=== PATIENT | female | born 1995 | race Caucasian/White ===

== ENCOUNTER 2017-02-27 06:29 | Emergency (ER) | payer BC ==
--- NOTE | 2017-02-27 06:54 | ERNOTE ---
Chest Pain/Cardiac HPI Date of Service: 02/27/17 Chief Complaint: Chest Pain Time Seen by Provider: 02/27/17 06:42 Source: patient Immunizations: IMMUNIZATION HX Immunizations Up to Date Yes History of Influenza Vaccine Yes Hx Pneumococcal Vaccination No Allergies/Adverse Reactions: Allergies No Known Allergies Allergy (Verified 02/27/17 06:40) Home Medications: HOME MEDICATIONS NK [No Home Medication] 02/27/17 [Last Taken Unknown] Narrative: This is a 21-year-old female who comes to the emergency department with chest pain which has been going on since 9:30 or 10:00 last night. The patient says she was lying down in bed trying to go to sleep when she noticed some sharp pain in her chest. She says it felt like somebody was "sitting on my chest". She said she had mild shortness of breath. She denies diaphoresis or radiation. Nothing made the pain any better or worse. He remained all night. She got up to go to work this morning she says that getting up made her even more so she decided to come to the hospital. She has never had any heart problems. She does not have high blood pressure she does not have diabetes she is a smoker and does not use any illegal drugs. No family history of early cardiac disease. She does have a history of anxiety. No other somatic complaints. No coughing or fever. Review of Systems - Review of Systems Constitutional: Present: no symptoms reported EYE: Present: no symptoms reported ENT: Present: no symptoms reported Respiratory: Present: no symptoms reported Cardiology: Present: chest pain Gastrointestinal/Abdominal: Present: no symptoms reported Genitourinary: Present: no symptoms reported Musculoskeletal: Present: no symptoms reported Skin: Present: no symptoms reported Neurological: Present: no symptoms reported Endocrine: Present: no symptoms reported Hematologic/Lymphatic: Present: no symptoms reported Psych: Present: no symptoms reported All Other Systems: All systems neg except as marked - Patient's Past Medical History Patient History - Medical: Anxiety, Depression Patient History - Cardiac/Respiratory: No pertinent hx Patient History - Cancer: No Hx of Cancer Patient History - Surgical Procedures: Appendectomy Patient History - Other: None LMP (females 10-50): now - Social History Living Situations: home Abuse History: No History of abuse Psych History: Hx of Anxiety, Hx of Depression Smoking Status: Current some day smoker Have you smoked in the past 12 months: Yes Do you dip or chew tobacco: No Alcohol Use: none Drug Use: none - Immunizations Immunizations Up to Date: Yes Hx Pneumococcal Vaccination: No History of Influenza Vaccine: Yes Physical Exam - Physical Exam General Appearance: Present: wd/wn, alert, no apparent distress Head Exam: Present: normal inspection, no evidence of injury Eye Exam: Normal inspection: bilateral, PERRL: bilateral, EOMI: bilateral Ears, Nose, Throat: Present: normal ENT inspection, normal pharynx Neck: Present: normal inspection, nontender Respiratory: Present: no respiratory distress, no accessory muscle use, chest nontender, lungs clear Cardiovascular/Chest: Present: regular rate, rhythm, no murmur, normal peripheral pulses Gastrointestinal/Abdominal: Present: normal bowel sounds, nontender, nondistended, soft, no organomegaly Back Exam: Present: normal inspection, normal range of motion, no CVA tenderness , no vertebral tenderness Extremity Exam: Present: normal inspection, non-tender, normal range of motion, no edema Neurological Exam: Present: alert, oriented, normal mood/affect Skin Exam: Present: normal color, warm/dry Lymphatic Exam: Present: no adenopathy ED Progress - Results and Orders Patient's Lab Results:: I have reviewed the patient's lab results. - Vital Signs Patient's Vital Signs:: I have reviewed the patient's vital signs. Vital Signs: Vital Signs 02/27/17 02/27/17 02/27/17 06:31 06:37 06:40 Temperature 36.9 C Pulse Rate 83 82 76 Respiratory 18 17 Rate Blood Pressure 135/90 135/90 O2 Sat by Pulse 99 99 Oximetry - EKG EKG: NSR EKG read: Interp. by me EKG Comments: Normal sinus rhythm, normal axis, normal intervals, T-wave inversion in lead 3 which is a normal variant no acute ischemic changes - Progress/Reassessment Chief Complaint: Chest Pain Progress:: Unchanged Departure - Departure Clinical Impression: Chest pain Disposition: Home self-care Condition: Stable Additional Instructions: As we discussed, urine tests and studies here do not show anything significantly abnormal. This does not imply that you are having pain only that I have not been able to identify an emergency cause for the pain here in the emergency department. I want you call your family doctor to set up a follow-up appointment. Certainly if you develop new worrisome symptoms he should return to the ER. Referrals: Mindy Ramirez MD [Primary Care Provider] -
[2017-02-27 06:58] VITALS: BP 114/73
[2017-02-27 07:02] LABS: Hematocrit 36.9 % (37.0-47.0); Hemoglobin 12.5 gm/dL (12.5-16.0); Mean Cell Volume 90.2 fl (78-100); Mean Corpuscular Hemoglobin 30.6 pg (27-31); Mean Corpuscular Hgb Conc 33.9 g/dl (32-36); Mean Platelet Volume 10.2 fl (6.0-9.5); Neutrophil % 52.4 % (42-75.0); Platelet Count 269 K/mm3 (150-450); Red Blood Count 4.09 M/mm3 (4.2-5.4); Red Cell Distribution Width 11.7 % (11.5-14.0); White Blood Count 5.7 K/mm3 (4.0-10.5)
[2017-02-27 07:19] LABS: ALT 21 U/L (19-67); AST 14 U/L (0-48); Albumin * 3.8 gm/dl (3.4-5.0); Alkaline Phosphatase * 56 U/L (50-170); Anion Gap 14.8 mmol/L (6.8-13.8); BUN/Creatinine Ratio 9.9 (9.0-21.6); Bilirubin, Total 0.4 mg/dL (0.0-1.1); Blood Urea Nitrogen 7 mg/dL (3-23); Ca. Corrected For Albumin 8.7 mg/dL (8.4-10.2); Calcium * 8.9 mg/dL (7.9-10.9); Carbon Dioxide 24.4 mmol/L (24-32.6); Chloride 104 mmol/L (97-106); Glucose * 100 mg/dL (70-110); Potassium 4.2 mmol/L (3.4-4.6); Sodium 139 mmol/L (132-142); Total Protein 7.4 gm/dL (6.2-8.2); Troponin I Less than 0.017 ng/ml (0.00-0.10)
[2017-02-27] MEDS ORDERED: BELLADONNA ALKALOIDS/PHENOBARB 60 ML BTL PO ONE (07:46)
[2017-02-27] MEDS ORDERED: MAG HYDROX/ALUMINUM HYD/SIMETH 30 ML UDC PO ONE (07:46)
[2017-02-27] MEDS ORDERED: LIDOCAINE HCL 20 ML UDC PO ONE (07:46)
== END 2017-02-27 08:00 | disposition home or self-care (01) ==
LOC: ER 06:29
DX: R07.9 Chest pain, unspecified (principal); F17.200 Nicotine dependence, unspecified, uncomplicated

== ENCOUNTER 2017-05-06 16:43 | Emergency (ER) | payer BC, OTHER ==
[2017-05-06 18:20] VITALS: BP 134/72
--- NOTE | 2017-05-06 18:36 | ERNOTE ---
Medical Problem HPI - Narrative Date of Service: 05/06/17 - General Chief Complaint: General Assessment Time Seen by Provider: 05/06/17 17:28 Source: patient Exam Limitations: no limitations - Immun/Allergies/Home Medications Immunizations: IMMUNIZATION HX Immunizations Up to Date Yes History of Influenza Vaccine Yes Hx Pneumococcal Vaccination No Allergies/Adverse Reactions: Allergies No Known Allergies Allergy (Verified 05/06/17 17:25) Home Medications: HOME MEDICATIONS NK [No Home Medication] 02/27/17 [Last Taken Unknown] - History of Present History Narrative: Patient presents after a lancet stick. She had checked a blood glucose on a patient and stuck herself in the left 2nd digit with the lancet. Gloved hand. No other Sx with this. She did not bleed. Patient by report is low risk. No N /T/W. No other complaints. Timing: gone now Severity: mild Modifying Factors - (Improves): Present: other - nothing Modifying Factors - (Worsens): Present: other - nothing Review of Systems - Review of Systems Constitutional: Absent: fever - Patient's Past Medical History Patient History - Medical: Anxiety, Depression Patient History - Cardiac/Respiratory: No pertinent hx Patient History - Cancer: No Hx of Cancer Patient History - Surgical Procedures: Appendectomy Patient History - Other: None LMP (females 10-50): 1 month - Social History Abuse History: No History of abuse Psych History: Hx of Anxiety, Hx of Depression Smoking Status: Never smoker - Immunizations Immunizations Up to Date: Yes Hx Pneumococcal Vaccination: No History of Influenza Vaccine: Yes Physical Exam - Physical Exam General Appearance: Present: alert, no apparent distress Head Exam: Present: normal inspection Eye Exam: Normal inspection: bilateral Neck: Present: normal inspection Respiratory: Present: no respiratory distress Cardiovascular/Chest: Present: regular rate, rhythm Back Exam: Present: normal range of motion Extremity Exam: Present: normal inspection, other - No bleeding or infection left second finger. no clear puncture site. No other abnormalities by iunspection or palpation. Neurological Exam: Present: alert, normal mood/affect, no motor/sensory deficits Skin Exam: Present: normal color, warm/dry ED Progress - Vital Signs Patient's Vital Signs:: I have reviewed the patient's vital signs. Vital Signs: Vital Signs 05/06/17 05/06/17 05/06/17 17:16 17:52 18:19 Temperature 37.2 C 37 C Pulse Rate 81 78 82 Respiratory 16 14 Rate Blood Pressure 125/76 127/69 134/72 O2 Sat by Pulse 100 100 Oximetry - Progress/Reassessment Chief Complaint: General Assessment Progress Note-Subjective: 05/06/17 18:39 Labs ordered by protocol. Patient low risk. I discussed HIV prophylaxis with her, risk stratification. She understands risks and benefits but decliens HIV prophylaxis. I discussed warning signs and reasons to return as well as the need for close f/u. Departure Clinical Impression: Needle stick injury of finger - Departure Disposition: Home self-care Condition: Stable Additional Instructions: Close observation of the site. Return if you change your mind about HIV prophylaxis medications, develop signs of infection or if your condition worsens or changes in any way. Follow-up with Occupational Health tomorrow. Referrals: Mindy Ramirez MD [Primary Care Provider] -
[2017-05-06] MEDS ORDERED: DIPHTH,PERTUSS(ACELL),TET VAC 0.5 ML VIAL IM ONE (18:37)
== END 2017-05-06 18:51 | disposition home or self-care (01) ==
LOC: ER 16:43
DX: S61.231A Puncture wound without foreign body of left index finger without damage to nail, initial encounter (principal); X58.XXXA Exposure to other specified factors, initial encounter; Y93.F9 Activity, other caregiving; Y92.538 Other ambulatory health services establishments as the place of occurrence of the external cause; Y99.0 Civilian activity done for income or pay; Z77.21 Contact with and (suspected) exposure to potentially hazardous body fluids; Z23 Encounter for immunization

== ENCOUNTER 2020-07-11 10:56 | Inpatient (IN) ==
[2020-07-11] MEDS ORDERED: RINGER'S SOLUTION,LACTATED 1,000 ML IV ONE (11:45)
[2020-07-11] MEDS ORDERED: ONDANSETRON 4 MG TAB.RAPDIS PO PRN (11:45)
[2020-07-11] MEDS ORDERED: DEXTROSE 5%-LACTATED RINGERS 1,000 ML IV PRN (11:45)
[2020-07-11] MEDS ORDERED: OXYTOCIN/0.9 % SODIUM CHLORIDE 30 UNITS/500 ML BAG IV ONE (11:45)
[2020-07-11 12:08] LABS: Hematocrit 35.5 % (37.0-47.0); Hemoglobin 11.8 gm/dL (12.5-16.0); Mean Corpuscular Hemoglobin 28.9 pg (27-31); Mean Corpuscular Hgb Conc 33.2 g/dl (32-36); Mean Platelet Volume 10.4 fl (8-12.5); Neutrophil # 5.8 K/mm3 (1.3-6.0); Neutrophil % 68.5 % (42-75.0); Platelet Count 231 K/mm3 (150-450); Red Blood Count 4.08 M/mm3 (4.2-5.4); Red Cell Distribution Width 13.2 % (11.5-14.0); White Blood Count 8.4 K/mm3 (4.0-10.5)
[2020-07-11 12:13] LABS: Albumin * 2.6 gm/dl (3.4-5.0); Anion Gap 15.9 mmol/L (6.8-13.8); BUN/Creatinine Ratio 13.7 (9.0-21.6); Bilirubin, Total 0.3 mg/dL (0.0-1.1); Ca. Corrected For Albumin 9.6 mg/dL (8.4-10.2); Calcium * 8.8 mg/dL (7.9-10.9); Carbon Dioxide 20.7 mmol/L (24-32.6); Potassium 3.6 mmol/L (3.4-4.6); Total Protein 6.7 gm/dL (6.2-8.2)
[2020-07-11 12:19] LABS: Random Urine Total Protein 16.2 mg/dL (0-12)
--- NOTE | 2020-07-11 12:41 | HP ---
Chief Complaint - Chief Complaint Date of Service: 07/11/20 Time of Service: 12:31 Chief Complaint: Induction of labor for GHTN History of Present Illness: 25 yo at 38w5d presents to L&D for induction of labor due to GHTN. Patient denies TAY, visual changes, epigastric pain, and COVID s/s. This complicated by anemia, anxiety, HSV carrier (no lesions, on prophylaxis), h/o GHTN in prior , and now GHTN with this . Rh positive Rubella immune GBS negative Medical History (Last Reviewed 07/11/20 @ 12:34 by Alfonzo Driver DO) Anemia (Chronic) Onset Date: 11/09/17 with pregnancies, 2019 Anxiety (Chronic) HSV antigen DIF positive (Chronic) History of gestational hypertension (Chronic) Bronchospasm Onset Date: Unknown Chlamydia Onset Date: Unknown treated Dysuria Onset Date: 08/31/14 Gestational hypertension Onset Date: ~01/2018 Gestational hypertension Onset Date: ~07/11/20 Hypovitaminosis D Onset Date: 10/02/15 Otitis media Onset Date: Unknown Ovarian cyst Onset Date: Unknown Pharyngitis due to erniqueta influenza virus Onset Date: 06/13/14 Pharyngitis, acute Onset Date: Unknown Pneumonia Onset Date: Unknown Scabies Onset Date: 02/17/13 Anxiety Onset Date: Unknown stopped taking vistaril after + UPT Herpes genitalis Onset Date: Unknown last outbreak 2017 Surgical History: Surgical History (Last Reviewed 07/11/20 @ 12:34 by Alfonzo Driver DO) Hx of appendectomy Onset Date: 05/12/16 Family History: Family History (Last Reviewed 07/11/20 @ 12:34 by Alfonzo Driver DO) Mother Alive and well Father Alive and well Social History: (Last Reviewed 07/11/20 @ 12:34 by Alfonzo Driver DO) Social History: Marital status: Single household members: children current occupational status: unemployed current occupational exposures/hazards: No Highest level of school completed/degree received: high school graduate Service: No Tobacco: Smoking Status: Former smoker Alcohol: alcohol intake: current alcohol intake frequency: a few times a week details: none since + UPT Substance Use: substance use type: does not use Dietary Habits: caffeine: Yes caffeine comment: 4-5 weekly Exercise: Physical activity type: none Review Of Systems (GEN) - Review of Systems Generalized/Overall Review: Present: No Symptoms Reported EENTM: Present: No Symptoms Reported Respiratory: Present: No Symptoms Reported Cardiac: Present: No Symptoms Reported Abdominal: Present: Abdominal Pain - mild contractions Genitourinary: Present: No Symptoms Reported Musculoskeletal: Present: No Symptoms Reported Neurological: Present: No Symptoms Reported Skin: Present: No Symptoms Reported Endocrine: Present: No Symptoms Reported Immunizations: IMMUNIZATION HX Immunizations Up to Date Yes History of Influenza Vaccine Yes Hx Pneumococcal Vaccination No Allergies/Adverse Reactions: Allergies Allergy/AdvReac Type Severity Reaction Status Date / Time No Known Allergies Allergy Verified 07/11/20 10:44 Home Medications: HOME MEDICATIONS magnesium oxide 400 mg PO DAILY 04/10/20 [Last Taken Unknown] ferrous sulfate 325 mg (65 mg iron) tablet,delayed release 325 mg PO DAILY #30 tab 05/03/20 [Last Taken Unknown] acetaminophen 325 mg capsule 325 mg PO Q6H PRN 06/12/20 [Last Taken Unknown] valacyclovir 500 mg tablet 500 mg PO BID 30 Days #60 tab 06/12/20 [Last Taken Unknown] hydroxyzine HCl 25 mg tablet 25 mg PO HS #30 tab 06/14/20 [Last Taken Unknown] Vits96/Iron Fum/Folic [ S] 1 tab PO DAILY 07/11/20 [Last Taken Unknown] Exam - Exam Vital Signs: Vital Signs - Last Taken Temp 37 C 07/11/20 11:19 Pulse 114 H 07/11/20 11:19 Resp 18 07/11/20 11:19 BP 128/78 07/11/20 11:19 Pulse Ox 99 07/11/20 11:19 BP 135/93 in office. Constitutional: Present: Alert, Oriented x3, Cooperative ENT Exam: Present: hearing grossly normal Neck: Present: non-tender, trachea midline. Absent: thyromegaly Breasts: Present: Exam deferred Respiratory: Present: lungs clear, no respiratory distress Cardiovascular/Chest: Present: normal peripheral pulses, no edema, tachycardia Abdomen: Present: soft, nontender, no rebound tenderness, other - gravid. Absent: guarding /Rectal: Present: Other - cervix 2/60/-2 Extremity: Present: no pedal edema, no calf tenderness Skin Exam: Present: normal color, warm/dry, no cyanosis Lymphatic: Present: no adenopathy Neurologic: Present: alert, normal mood/affect - mildly anxious, oriented x 3 Appearance: Present: appropriate appearance, appropriate insight Eye contact: Present: cooperative, good eye contact Thoughts: Present: normal thought pattern Diagnostic Studies: Abnormal Lab Results 07/11/20 07/11/20 07/11/20 Range/Units 11:30 11:55 11:55 RBC 4.08 L (4.2-5.4) M/mm3 Hgb 11.8 L (12.5-16.0) gm/dL Hct 35.5 L (37.0-47.0) % Immature Gran % (Auto) 0.70 H (0.001-0.429) % Immature Gran # (Auto) 0.06 H (0.000-0.0310) K/mm3 Carbon Dioxide 20.7 L (24-32.6) mmol/L Anion Gap 15.9 H (6.8-13.8) mmol/L Est GFR (Non-Af Amer) 159 H (60-130) mL/min ALT 14 L (19-67) U/L Albumin 2.6 L (3.4-5.0) gm/dl U Random Total Protein 16.2 H (0-12) mg/dL Laboratory Results WBC 8.4 K/mm3 (4.0-10.5) 07/11/20 11:55 RBC 4.08 M/mm3 (4.2-5.4) L 07/11/20 11:55 Hgb 11.8 gm/dL (12.5-16.0) L 07/11/20 11:55 Hct 35.5 % (37.0-47.0) L 07/11/20 11:55 MCV 87.0 fl (78-100) 07/11/20 11:55 MCH 28.9 pg (27-31) 07/11/20 11:55 MCHC 33.2 g/dl (32-36) 07/11/20 11:55 RDW 13.2 % (11.5-14.0) 07/11/20 11:55 Plt Count 231 K/mm3 (150-450) 07/11/20 11:55 MPV 10.4 fl (8-12.5) 07/11/20 11:55 Immature Gran % (Auto) 0.70 % (0.001-0.429) H 07/11/20 11:55 Immature Gran # (Auto) 0.06 K/mm3 (0.000-0.0310) H 07/11/20 11:55 Neutrophils % 68.5 % (42-75.0) 07/11/20 11:55 Lymphocytes % 20.8 % (20-51) 07/11/20 11:55 Monocytes % 8.9 % (0.0-9) 07/11/20 11:55 Eosinophils % 0.7 % (0.0-3.0) 07/11/20 11:55 Basophils % 0.4 % (0.0-1.0) 07/11/20 11:55 Nucleated RBC % 0.0 k/mm3 (0-1) 07/11/20 11:55 Neutrophils # 5.8 K/mm3 (1.3-6.0) 07/11/20 11:55 Lymphocytes # 1.75 k/mm3 (1.5-3.5) 07/11/20 11:55 Monocytes # 0.8 k/mm3 (0.0-1.0) 07/11/20 11:55 Eosinophils # 0.1 k/mm3 (0.0-0.7) 07/11/20 11:55 Absolute Basophils 0.0 k/mm3 (0.0-0.1) 07/11/20 11:55 Sodium 138 mmol/L (132-142) 07/11/20 11:55 Plasma Sodium 138 mmol/L (130-142) 07/11/20 11:55 Potassium 3.6 mmol/L (3.4-4.6) 07/11/20 11:55 Chloride 105 mmol/L (97-106) 07/11/20 11:55 Carbon Dioxide 20.7 mmol/L (24-32.6) L 07/11/20 11:55 Anion Gap 15.9 mmol/L (6.8-13.8) H 07/11/20 11:55 BUN 7 mg/dL (3-23) 07/11/20 11:55 Creatinine 0.51 mg/dL (0.4-1.4) 07/11/20 11:55 Est GFR (Non-Af Amer) 159 mL/min (60-130) H 07/11/20 11:55 BUN/Creatinine Ratio 13.7 (9.0-21.6) 07/11/20 11:55 Random Glucose 109 mg/dL (70-110) 07/11/20 11:55 Calcium 8.8 mg/dL (7.9-10.9) 07/11/20 11:55 Calcium Adj for Albumin 9.6 mg/dL (8.4-10.2) 07/11/20 11:55 Total Bilirubin 0.3 mg/dL (0.0-1.1) 07/11/20 11:55 AST 13 U/L (0-48) 07/11/20 11:55 ALT 14 U/L (19-67) L 07/11/20 11:55 Alkaline Phosphatase 135 U/L (50-170) 07/11/20 11:55 Total Protein 6.7 gm/dL (6.2-8.2) 07/11/20 11:55 Albumin 2.6 gm/dl (3.4-5.0) L 07/11/20 11:55 Ur Random Creatinine 102.2 mg/dL (60-200) 07/11/20 11:30 U Random Total Protein 16.2 mg/dL (0-12) H 07/11/20 11:30 U [place] Prot/Creat Ratio 159 mg/gm (0-199) 07/11/20 11:30 Assessment/Plan - Assessment/Plan (1) Gestational hyperglycemia Assessment: Admit for pitocin induction of labor. Epidural PRN. Check preeclamptic labs. Monitor closely for severe features. Problem: Acute (2) Anxiety Problem: Chronic (3) HSV antigen DIF positive Problem: Chronic (4) Anemia Problem: Chronic Qualifiers: Anemia type: iron deficiency Iron deficiency anemia type: inadequate dietary iron intake Qualified Code(s): D50.8 - Other iron deficiency anemias
[2020-07-11] MEDS ORDERED: NALOXONE HCL 1 MG/1 ML SYRG IV PRN (15:44)
[2020-07-11] MEDS ORDERED: ONDANSETRON HCL/PF 2 MG/ML VIAL IV PRN (15:44)
[2020-07-11] MEDS ORDERED: BUPIVACAINE HCL/0.9 % NACL/PF 250 ML EP PRN (15:44)
[2020-07-11] MEDS ORDERED: fentaNYL CITRATE/PF 50 MCG/ML AMPUL IT SCH (15:45)
--- NOTE | 2020-07-11 16:35 | ANES ---
Anesthesia Pre Procedure Eval Vitals/Labs: Last Vital Signs Temp 37 C 07/11/20 11:19 Pulse 114 H 07/11/20 11:19 Resp 18 07/11/20 11:19 BP 128/78 07/11/20 11:19 Pulse Ox 99 07/11/20 11:19 HOME MEDICATIONS magnesium oxide 400 mg PO DAILY 04/10/20 [Last Taken Unknown] ferrous sulfate 325 mg (65 mg iron) tablet,delayed release 325 mg PO DAILY #30 tab 05/03/20 [Last Taken Unknown] acetaminophen 325 mg capsule 325 mg PO Q6H PRN 06/12/20 [Last Taken Unknown] valacyclovir 500 mg tablet 500 mg PO BID 30 Days #60 tab 06/12/20 [Last Taken Unknown] hydroxyzine HCl 25 mg tablet 25 mg PO HS #30 tab 06/14/20 [Last Taken Unknown] Vits96/Iron Fum/Folic [ S] 1 tab PO DAILY 07/11/20 [Last Taken Unknown] Allergies/Adverse Reactions: Allergies Allergy/AdvReac Type Severity Reaction Status Date / Time No Known Allergies Allergy Verified 07/11/20 10:44 - Planned Procedure Planned Procedure: induction gestational htn Medication List Reviewed:: Yes Allergies Verified: Yes Medical History (Last Reviewed 07/11/20 @ 16:33 by Sukhdeep Najera CRNA) Anemia (Chronic) Onset Date: 11/09/17 with pregnancies, 2019 Anxiety (Chronic) HSV antigen DIF positive (Chronic) History of gestational hypertension (Chronic) Bronchospasm Onset Date: Unknown Chlamydia Onset Date: Unknown treated Dysuria Onset Date: 08/31/14 Gestational hypertension Onset Date: ~01/2018 Gestational hypertension Onset Date: ~07/11/20 Hypovitaminosis D Onset Date: 10/02/15 Otitis media Onset Date: Unknown Ovarian cyst Onset Date: Unknown Pharyngitis due to enriqueta influenza virus Onset Date: 06/13/14 Pharyngitis, acute Onset Date: Unknown Pneumonia Onset Date: Unknown Scabies Onset Date: 02/17/13 Anxiety Onset Date: Unknown stopped taking vistaril after + UPT Herpes genitalis Onset Date: Unknown last outbreak 2018 Surgical History (Last Reviewed 07/11/20 @ 16:33 by Sukhdeep Najera CRNA) Hx of appendectomy Onset Date: 05/12/16 Family History (Last Reviewed 07/11/20 @ 16:33 by Sukhdeep Najera CRNA) Mother Alive and well Father Alive and well - Family Anesthesia History Family History:: no untoward family reactions to anesthesia, no familial bleeding tendencies, no family history of clotting disorders, no family history of premature - Airway/Neck/Teeth Within Normal Limits:: Yes Teeth Condition: intact Neck Exam: full range of motion Mallampatti Score: 2 Thyromental (T-M) distance: > 6 cm Mandibulo Hyoid distance: > 3 cm - Respiratory Respiratory Physical: lungs clear Sleep Apnea currently treated: No Sleep Apnea by current assessment: No - Cardiovascular Tolerate Activity: Fair Heart Sounds: S1 & S2, Regular - Gastrointestinal NPO since: this am - Anesthesia Assessment and Plan ASA Class: PS, II, E Anesthesia Type Plan: Epidural - CSE for labor analgesia
--- NOTE | 2020-07-11 16:55 | ANES ---
Anesthesia Procedure Note Procedure Note: ANESTHESIA PROCEDURE NOTE Date of Procedure: 07/11/2020 Time of procedure: 1635. Performed by: RHIANNA Garg CRNA, MSN Manager General: Kayleigh Vasquez RN. Preprocedure diagnosis: Active labor, labor pain. Post procedure diagnosis: Same. Procedure:Epidural for labor analgesia L3-4. Indications: Labor pain. Findings: See below. Details of the procedure: The patient was placed on the side of the bed in sitting positionand prepped with DuraPrep then draped in a sterile fashion. Lidocaine 1% was infiltrated to the skin and subcutaneous tissues at the level of the L3-4 interspace. An 18-gauge Touhy needle was used to approach the epidural space with loss of resistance technique. Once loss of resistance was achieved a 27-gauge spinal needle was passed through the epidural needle and CSF was contacted. After CSF returned, 20 mcg of fentanyl was injected in the spinal needle was removed the epidural catheter was then threaded approximately 4 cm in the epidural needle was removed. The catheter was taped in place and after careful aspiration 3 mL of 1.5% lidocaine with 1-200,000 epinephrine was injected without change in maternal heart rate or sensorium. . EBL: Minimal. Fluids: N/A. Specimen: N/A. Post procedure condition: The patient tolerated the procedure well with good relief. No complications were noted. Thank you for this consultation. Sukhdeep Najera CRNA, RHIANNA, MSN
--- NOTE | 2020-07-11 16:56 | ANES ---
Post Anesthesia Discharge - Transfer of Care Transfer of Care handoff given to nurse: Yes - Discharge from PACU Discharge from PACU when meets criteria: Yes - Comfortable post CSE.
--- NOTE | 2020-07-11 17:04 | ANES ---
Post Anesthesia Assessment - Vital Signs Vitals: Last Vital Signs Temp 37 C 07/11/20 11:19 Pulse 114 H 07/11/20 11:19 Resp 18 07/11/20 11:19 BP 128/78 07/11/20 11:19 Pulse Ox 99 07/11/20 11:19 Airway Patency: Normal - Mental Status Level Of Consciousness: Awake, Alert, Appropriate - Pain Level Pain Score: 0 - N/V Assessment Nausea/Vomiting Presence: None Dehydration:: No
[2020-07-11] MEDS ORDERED: ACETAMINOPHEN 325 MG TABLET PO ONE (19:19)
--- NOTE | 2020-07-11 20:17 | PN ---
Progess Note - Interim Date: 07/11/20 Time: 20:13 Narrative: 07/11/20 20:13 Patient comfortable with epidural Vital signs stable. Pitocin at 8 mu/min. FHT: 45 baseline, reassuring contractions q 2-3 min Cervix: 4/60/-2, AROM-clear Impression: Intrauterine at 38-5/7 weeks induction of labor for gestational hypertension Plan: Continue present plan
--- NOTE | 2020-07-12 00:55 | OR ---
Operative Report - Dictated Report Narrative: Spontaneous vaginal delivery of vigorously crying viable male at 0038 on 07/12/2020 with Apgars 9 and 9, weighing 3261 g in ERIKA position with left hand at face. Cord clamping delayed approximately 1 minute Placenta delivered complete, intact, with three vessel cord Estimated blood loss: 100 mL Anesthesia: Epidural Lacerations: None History for MU History for MU Definition: * The number of deliveries resulting in a live the patient experienced prior to current hospitalization * The previous delivery of live twins or any live multiple gestation is considered one live event. *If primagravida or nulliparous is documented select zero for the number of previous live births. Live Events: Live Events: 1
[2020-07-12] MEDS ORDERED: BENZOCAINE/MENTHOL 81 SPRAY CAN TP PRN (00:58)
[2020-07-12] MEDS ORDERED: BISACODYL 10 MG SUPP.RECT RC PRN (00:58)
[2020-07-12] MEDS ORDERED: SENNOSIDES 8.6 MG TABLET PO PRN (00:58)
[2020-07-12] MEDS ORDERED: HYDROCORTISONE 30 APPL TUBE TP PRN (00:58)
[2020-07-12] MEDS ORDERED: OXYTOCIN/0.9 % SODIUM CHLORIDE 30 UNITS/500 ML BAG IV ONE (00:58)
[2020-07-12] MEDS ORDERED: GLYCERIN/WITCH HAZEL LEAF 40 APPL BOX TP PRN (00:58)
[2020-07-12] MEDS ORDERED: CALCIUM CARBONATE 500 MG TAB.CHEW PO PRN (01:13)
[2020-07-12] MEDS: IBUPROFEN 800 MG TABLET PO PRN ×3 (02:49→17:17)
[2020-07-12] MEDS: oxyCODONE HCL/ACETAMINOPHEN 1 TAB TABLET PO PRN ×4 (03:35→17:16)
[2020-07-12] MEDS: MAGNESIUM OXIDE 400 MG TABLET PO SCH (08:09)
[2020-07-12] MEDS: PRENATAL VITS96/IRON FUM/FOLIC 1 TAB TABLET PO SCH (08:09)
[2020-07-12] MEDS: FERROUS SULFATE 325 MG TABLET PO SCH (08:09)
[2020-07-12] MEDS: DOCUSATE SODIUM 100 MG CAPSULE PO SCH ×2 (08:09→20:23)
[2020-07-12] MEDS: hydrOXYzine HCL 25 MG TABLET PO SCH (22:06)
[2020-07-13] MEDS: IBUPROFEN 800 MG TABLET PO PRN ×4 (00:39→22:21)
[2020-07-13] MEDS: oxyCODONE HCL/ACETAMINOPHEN 1 TAB TABLET PO PRN ×3 (00:39→18:56)
[2020-07-13] MEDS: PRENATAL VITS96/IRON FUM/FOLIC 1 TAB TABLET PO SCH (08:23)
[2020-07-13] MEDS: DOCUSATE SODIUM 100 MG CAPSULE PO SCH ×2 (08:24→21:07)
[2020-07-13] MEDS: MAGNESIUM OXIDE 400 MG TABLET PO SCH (08:24)
[2020-07-13] MEDS: FERROUS SULFATE 325 MG TABLET PO SCH (08:24)
--- NOTE | 2020-07-13 11:54 | PN ---
Subjective - Date and Time Seen Date: 07/13/20 Time: 11:51 Subjective Narrative: Patient without complaints Objective Objective Narrative: See vital signs - Review of Systems Generalized/Overall Review: Reports: No Symptoms Reported Misc: All systems neg except as marked - Vitals Vitals: Last Vital Signs Temp 36.6 C 07/13/20 08:33 Pulse 78 07/13/20 08:33 Resp 16 07/13/20 08:33 BP 136/89 07/13/20 08:33 Pulse Ox 100 07/13/20 00:40 - Exam Constitutional: Present: Alert, Oriented x3, Cooperative, No distress ENT Exam: Present: hearing grossly normal Neck: Present: normal inspection Breasts: Present: Exam deferred Respiratory: Present: lungs clear, normal breath sounds, no respiratory distress Cardiovascular/Chest: Present: regular rate, rhythm Abdomen: Present: soft, nontender, nondistended - fundus is firm Extremity: Present: non-tender, no calf tenderness Skin Exam: Present: normal color, warm/dry, no cyanosis Neurologic: Present: alert, normal mood/affect, oriented x 3 Appearance: Present: appropriate appearance, appropriate insight, neat, no memory impairment Eye contact: Present: cooperative, good eye contact, normal speech Thoughts: Present: normal thought pattern Cauti Physician Documentation - Urinary Catheter Management Urethral (Roman) Urethral Indwelling: No Date of Insertion: 07/11/20 Time of Insertion: 17:30 Date of Removal: 07/12/20 Time of Removal: 00:32 Assessment/Plan Plan Narrative: PPD 1 s/p Doing well Discharge tomorrow - Problems/Diagnosis (1) 38 weeks gestation of Problem: Acute (2) Normal vaginal delivery of second Problem: Acute (3) Gestational hyperglycemia Problem: Acute (4) Anemia Problem: Chronic Qualifiers: Anemia type: iron deficiency Iron deficiency anemia type: inadequate dietary iron intake Qualified Code(s): D50.8 - Other iron deficiency anemias (5) Anxiety Problem: Chronic (6) HSV antigen DIF positive Problem: Chronic
--- NOTE | 2020-07-13 11:59 | DS ---
OB Discharge Summary (1) 38 weeks gestation of Status: Acute (2) Normal vaginal delivery of second Status: Acute (3) Gestational hyperglycemia Status: Acute (4) Anemia Status: Chronic Qualifiers: Anemia type: iron deficiency Iron deficiency anemia type: inadequate dietary iron intake Qualified Code(s): D50.8 - Other iron deficiency anemias (5) Anxiety Status: Chronic (6) HSV antigen DIF positive Status: Chronic Delivery Date: 07/12/20 Delivery Time: 00:38 :: 2 Para:: 2 Gestational weeks:: 38 Gestational days:: 6 Intrapartum Procedures: Spontaneous Vaginal Delivery, Anesthesia - Epidural Procedures: None /OP Complications: GHTN Discharge Diagnosis: Term -Delivered, Gestational Hypertension - Discharge Information Discharge Location: Home Disposition: Home self-care Referrals: Mindy Ramirez MD [Primary Care Provider] - Activity on Discharge:: Activity as tolerated, Pelvic Rest Discharge Diet: General/regular food Additional Patient Instructions (free text): Ann Marie your follow up appt is on Thursday08/07/2020 @ 9:15AM with Dr Driver. Luca's follow up appointment is scheduled for ThursdayJuly 16 @ 1:[address] Bethea. Please arrive 15 minutes early for paperwork. Prescriptions (Any new or edited meds): Ibuprofen [Motrin] 200 - 800 mg PO Q6H PRN #100 tab PRN Reason: Pain Complete Home Medications List: Complete Home Medication List: magnesium oxide 400 mg PO DAILY 04/10/20 ferrous sulfate 325 mg (65 mg iron) tablet,delayed release 325 mg PO DAILY #30 tab 05/03/20 acetaminophen 325 mg capsule 325 mg PO Q6H PRN 06/12/20 valacyclovir 500 mg tablet 500 mg PO BID 30 Days #60 tab 06/12/20 hydroxyzine HCl 25 mg tablet 25 mg PO HS #30 tab 06/14/20 Vits96/Iron Fum/Folic [ S] 1 tab PO DAILY 07/11/20 Ibuprofen [Motrin] 200 - 800 mg PO Q6H PRN #100 tab 07/12/20 - Plan Discharge to:: Home Comment:: Routine Discharge Instructions Follow up in office in:: Other - already scheduled - Information Weight (Grams): 3,261 Infant Sex: Male Score 1 min: 9 Score 5 min: 9 Infant Complications: Multiple Variable Decels
[2020-07-13] MEDS: hydrOXYzine HCL 25 MG TABLET PO SCH (21:07)
[2020-07-14] MEDS: oxyCODONE HCL/ACETAMINOPHEN 1 TAB TABLET PO PRN (05:35)
[2020-07-14] MEDS: FERROUS SULFATE 325 MG TABLET PO SCH ×2 (06:33→11:30)
[2020-07-14] MEDS: IBUPROFEN 800 MG TABLET PO PRN (06:33)
--- NOTE | 2020-07-14 09:42 | PN ---
Subjective - Date and Time Seen Date: 07/14/20 Time: 09:41 Subjective Narrative: Patient without complaints Objective Objective Narrative: See vital signs - Review of Systems Generalized/Overall Review: Reports: No Symptoms Reported Misc: All systems neg except as marked - Vitals Vitals: Last Vital Signs Temp 36.4 C 07/14/20 06:45 Pulse 76 07/14/20 06:45 Resp 20 07/14/20 06:45 BP 133/71 07/14/20 06:45 Pulse Ox 99 07/14/20 06:45 - Exam Constitutional: Present: Alert, Oriented x3, Cooperative, No distress ENT Exam: Present: hearing grossly normal Neck: Present: normal inspection Respiratory: Present: lungs clear, normal breath sounds, no respiratory distress Cardiovascular/Chest: Present: regular rate, rhythm Abdomen: Present: soft, nontender, nondistended - fundus is firm /Rectal: Present: Exam deferred Extremity: Present: non-tender, no calf tenderness Skin Exam: Present: normal color, warm/dry, no cyanosis Neurologic: Present: alert, normal mood/affect, oriented x 3 Appearance: Present: appropriate appearance, appropriate insight, neat, no memory impairment Eye contact: Present: cooperative, good eye contact, normal speech Thoughts: Present: normal thought pattern Cauti Physician Documentation - Urinary Catheter Management Urethral (Roman) Urethral Indwelling: No Date of Insertion: 07/11/20 Time of Insertion: 17:30 Date of Removal: 07/12/20 Time of Removal: 00:32 Assessment/Plan Plan Narrative: PPD 2 s/p Doing well Discharge tomorrow - Problems/Diagnosis (1) 38 weeks gestation of Problem: Acute (2) Normal vaginal delivery of second Problem: Acute (3) Gestational hyperglycemia Problem: Acute (4) Anemia Problem: Chronic Qualifiers: Anemia type: iron deficiency Iron deficiency anemia type: inadequate dietary iron intake Qualified Code(s): D50.8 - Other iron deficiency anemias (5) Anxiety Problem: Chronic (6) HSV antigen DIF positive Problem: Chronic
[2020-07-14] MEDS: MAGNESIUM OXIDE 400 MG TABLET PO SCH (10:34)
[2020-07-14] MEDS: PRENATAL VITS96/IRON FUM/FOLIC 1 TAB TABLET PO SCH (10:34)
[2020-07-14] MEDS: DOCUSATE SODIUM 100 MG CAPSULE PO SCH (11:30)
[2020-07-14 11:58] VITALS: BP 123/80
== END 2020-07-14 10:55 | disposition home or self-care (01) | DRG 807 ==
LOC: OB 10:56
PROVIDERS: ADMIT Obstetrics & Gynecology; ATTEND Obstetrics & Gynecology